=== PATIENT | male | born 1955 ===

== ENCOUNTER 2017-12-05 10:40 | Day surgery (SDC) | payer BC ==
[~2017-12-05 10:40] MED LIST: Buffered Lidocaine 0.9% SYRIN* 5 ML/SYR SYRINGE INTRADERM ONE
[2017-12-05] MEDS ORDERED: Lidocaine 4% TOPICAL* 50 ML TOP.SOLN ONE (13:27)
[2017-12-05] MEDS ORDERED: Oxymetazoline 0.05% NASAL SPR* 15 ML BTL ONE ×2 (13:27→17:42)
[2017-12-05] MEDS ORDERED: Lidocain 1% EPI 1:100,000 * 30 ML MDV ONE (13:28)
[2017-12-05] MEDS ORDERED: Bacitracin OINTMENT* 0.5% 0.5 oz TUBE ONE (13:28)
[2017-12-05] MEDS ORDERED: fentaNYL* 50 MCG/ML 2 ML VIAL (100 MCG VIAL) ONE (13:51)
[2017-12-05] MEDS ORDERED: Propofol* 10 MG/ML 20 ML BTL IV PUSH ONE (13:51)
[2017-12-05] MEDS ORDERED: EPHEDrine (Pressors)* 50 MG/ML VIAL ONE (14:21)
[2017-12-05] MEDS ORDERED: Dexamethasone IV* 4 MG/ML 1 ML (4 MG) ONE (14:24)
[2017-12-05] MEDS ORDERED: Labetalol IV* 5 MG/ML 20 ML VIAL ONE (15:49)
[2017-12-05] MEDS ORDERED: hydrALAZINE IV* 20 MG/ML VIAL ONE (17:10)
[2017-12-05 18:03] VITALS: BP 164/91
--- NOTE | 2017-12-05 23:43 | CONS ---
CONSULTATION NOTE: DATE OF CONSULT: 12/05/17 HISTORY: I was called to the PACU a couple hours after the patient's surgery and his blood pressure was systolic in the low 200s, diastolic in the low 100s. He had been given some beta-kenzie and he was having some bleeding. I suctioned out the blood and sprayed his nose with some oxymetazoline. His blood pressures came down to 136/101. I called the hospitalist and discussed the case with him. The patient was asymptomatic and he appears to be a chronic hypertensive. It turns out he had run out of his beta-kenzie and had not taken at this morning. He was to take a half of a 5 mg of Bislol, what he was doing was taking 1 every other day and did not have it this morning despite he told he did. He was on his amlodipine. Based on the hospitalist's recommendation, I sent a prescription for 5 mg to take daily and he needs to call his primary care doctor on Friday for long-term instructions. [id number]/[facility] #: [id number] MORGAN
--- NOTE | 2017-12-06 07:32 | OP ---
DATE OF OPERATION: 12/05/17 - SDS DATE OF : 57 SURGEON: Monty Ely MD. PRE-OP DIAGNOSES: 1. Septal deviation. 2. Bilateral inferior turbinate hypertrophy. 3. Barosinusitis. 4. Bilateral obstruction of the eustachian tubes. POST-OP DIAGNOSIS: OPERATIVE PROCEDURE: 1. Nasal septoplasty. 2. Bilateral submucous resection of the inferior turbinates. 3. Bilateral balloon dilatation of the frontal sinuses. 4. Bilateral balloon dilatation of the eustachian tubes under general laryngeal mask anesthesia. COMPLICATIONS: None. DISPOSITION: Good. SPECIMENS: None. BLOOD LOSS: Minimal. DESCRIPTION OF PROCEDURE: The patient was taken to the operating room, placed in the supine position on the operating room table. General anesthesia was induced. He was maintained with laryngeal mask airway anesthesia and draped for the surgery. His nose was packed bilaterally with cottonoids impregnated with oxymetazoline and 4% lidocaine. After several minutes, these were removed. Using the endoscopes, I injected the root of the middle turbinates and the lateral wall and medialized the middle turbinates and packed into the ostiomeatal unit; after a couple of minutes I removed these. Using the endoscope and the curved seeker, I verified the frontal sinus duct, and then I took the balloon dilator with a light and inserted this into the frontal sinus duct, advanced the light, saw the light coming though the forehead, confirming position, advanced the balloon, blew this up and removed it, and this was done bilaterally. I then performed the left eustachian tube dilation by rebanding the balloon for the eustachian tubes. Under endoscopic visualization, I inserted the balloon seeker up to the 2-cm jayson, advanced the balloon, blew it up and held for 2 minutes, released and removed. On the right side, I could not get to it because of a large spur, so the septoplasty was performed and the septum was injected with 1% lidocaine with 1:100,000 epinephrine. Incision was made in the right anterior septum. Mucoperichondrial flap was raised. Bony cartilaginous junction was opened. The contralateral flap was raised. Double- action scissors was used to make a superior cut above the large bony spur that was obstructing the right nasal cavity. The [place] were used to remove the spur below this. A freer knife was used to remove some posterior cartilage and then the Mikado forceps was used to fracture off some maxillary spurs and these were removed with the Santana. This completed the septoplasty. The incision was closed with 3-0 simple interrupted chromics, a 4-0 gut quilting stitch was placed. The right-sided balloon dilation of the computerized mill mill recorder tube was then performed under endoscopic guidance. The balloon was inserted to the 2 -cm jayson. The balloon was advanced and held for 2 minutes and removed. Incisions were made in the anterior inferior turbinates. [place] elevator was used to raise the mucosa off the bone. The debrider was inserted into this pocket. Submucosa was debrided bilaterally. Magnetic splints were smeared with bacitracin, placed bilaterally on the either side of the septum and sutured in place with Prolene. The patient tolerated this procedure well, no complications , extubated uneventfully, and transferred to the recovery room in stable condition. [id number]/[facility] #: [id number] MORGAN
== END 2017-12-05 18:30 | disposition home or self-care (01) ==
LOC: OR 10:40
PROVIDERS: ATTEND Otolaryngology
DX: J34.2 Deviated nasal septum (principal); J34.3 Hypertrophy of nasal turbinates; J32.1 Chronic frontal sinusitis; H68.103 Unspecified obstruction of Eustachian tube, bilateral; I25.10 Atherosclerotic heart disease of native coronary artery without angina pectoris; I11.9 Hypertensive heart disease without heart failure; Z90.5 Acquired absence of kidney; K21.9 Gastro-esophageal reflux disease without esophagitis
CPT/HCPCS: A9270-GY; J0360; J1100; J2704; J3010